=== PATIENT | male | born 1965 | race Caucasian/White ===

== ENCOUNTER 2022-03-24 10:42 | Emergency (ER) | payer MEDICAID ==
[~2022-03-24] VITALS: Ht 157.5 cm; Wt 83.0 kg
[2022-03-24] MEDS ORDERED: LIDOCAINE HCL/PF 1% 10 MG/ML 5ML VIAL INFIL ONE (12:00)
[2022-03-24] MEDS ORDERED: TETANUS, DIPHTHERIA, PERTUSSIS VAC/PF 0.5ML (>10YR OLD) IM ONE (12:00)
[2022-03-24] MEDS ORDERED: BACITRACIN ZINC OINT UDPKT TOP ONE (12:00)
[2022-03-24] MEDS ORDERED: CLINDAMYCIN HCL 150MG CAPSULE PO STA (13:44)
[2022-03-24] MEDS ORDERED: IBUP-2028 MT (13:51)
[2022-03-24] MEDS ORDERED: HYDR-4001 MT (13:51)
[2022-03-24] MEDS ORDERED: CLIN-194 MT (13:52)
[2022-03-24 14:20] VITALS: BP 138/76
== END 2022-03-24 14:20 | disposition home or self-care (01) ==
LOC: ER 10:48
DX: S61.214A Laceration without foreign body of right ring finger without damage to nail, initial encounter (principal); W26.8XXA Contact with other sharp object(s), not elsewhere classified, initial encounter; Y93.89 Activity, other specified; Y92.89 Other specified places as the place of occurrence of the external cause; Y99.8 Other external cause status
CPT/HCPCS: 12001; 73130; 90471; 90715; 99283; J3490